=== PATIENT | male | born 1990 | race Caucasian/White ===

== ENCOUNTER → 2016-03-16 | Outpatient (CLI) | payer BC ==
[~2016-03-16] MED LIST: IBUP1CAP9 PO; ONDA4TAB46 PO; OXYC-57 PO; TAMS0.4C38 PO
[2016-03-16 17:34] LABS: BASO % 0.4 %; BASO ABS # 0.02 K/uL (0-0.2); COMPLETE YES; EOS % 1.6 %; HEMATOCRIT 41.8 % (42-52); IG% 0.2 %; LYMPH % 36.5 %; LYMPH ABS # 2.08 K/uL (1.2-3.4); MEAN CELL VOLUME 86.5 fL (80-100); MEAN CORPUSCULAR HEMOGLOBIN 31.3 pg (25-34); MEAN CORPUSCULAR HGB CONC 36.1 g/dl (32-36); MEAN PLATELET VOLUME 9.7 fL (7.4-10.4); MONO % 9.3 %; PLATELET COUNT 192 K/uL (130-400); RED BLOOD COUNT 4.83 M/uL (4.7-6.1)
[2016-03-16 17:49] LABS: BLOOD UREA NITROGEN 12 mg/dl (7-18); BUN/CREATININE RATIO 12.4 (10-20); CARBON DIOXIDE 30 mmol/L (21-32); CHLORIDE 103 mmol/L (98-107); CREATININE 0.97 mg/dl (0.60-1.40); POTASSIUM 4.2 mmol/L (3.5-5.1); SODIUM 142 mmol/L (136-145)
== END | disposition home or self-care (01) ==
LOC: C.LAB 17:00
PROVIDERS: ATTEND Urology
DX: N20.0 Calculus of kidney (principal)

== ENCOUNTER → 2016-03-19 | Day surgery (SDC) | payer BC ==
[2016-03-17 08:55] VITALS: Ht 177.8 cm; Wt 72.7 kg
[~2016-03-19] VITALS: Ht 177.8 cm; Wt 72.7 kg
[~2016-03-19] MED LIST changes: +ATROPINE SULFATE 0.1 MG/ML 5ML SYR IV PRN; +CIPROFLOXACIN 400MG / D5W IV SCH; +DEXAMETHASONE SOD INJ 4 MG/ML VIAL ONE; +EpHEDrine SULFATE INJ 50 MG/ML AMP IV PRN; +FENTANYL CITRATE INJ 50 MCG/1 ML 2 ML VIAL IV PRN; +FENTANYL CITRATE INJ 50 MCG/1 ML 2 ML VIAL ONE; +LACTATED RINGER'S 1000ML 1,000 ML IV SCH; +LIDOCAINE HCL 2% 2 ML VIAL (20MG/ML) ONE; +MIDAZOLAM HCL 1 MG/ML 2ML VIAL ONE; +ONDANSETRON INJ 2 MG/ML 2 ML VIAL IV PRN; +ONDANSETRON INJ 2 MG/ML 2 ML VIAL ONE; +OXYCODONE/ACETAMINOPHEN 5-325 TAB PO PRN; +PATIENT'S ALLERGY INFO NEEDS ENTERED SCH; +PROPOFOL IV EMULSION 10 MG/ML 20 ML VIAL IV ONE
--- NOTE | 2016-03-19 09:01 | DIAGNOSTIC IMAGING REPORT ---
[facility] CLINICAL HISTORY: Left ureteral calculus COMPARISON STUDY: Outside CT scan dated 03/09/2016 FINDINGS: There is no pathologic bowel dilatation. There is a 4 mm left renal calculus at the level of the left L3 transverse process. IMPRESSION: 1. No evidence of pathologic bowel dilatation 2. 4 mm proximal left ureteral calculus at the L3 level Electronically signed by: Pepe Gaytan M.D. 03/19/2016 8:59 AM Dictated Date/Time: 03/19/2016 8:58 AM
--- NOTE | 2016-03-19 11:20 | History & Physical Bridge Note ---
H&P Re-Evaluation Bridge Note: I have examined the patient, reviewed the History & Physical and in the interval since the performance of the History & Physical I have noted the following changes of clinical significance: No changes noted
--- NOTE | 2016-03-19 12:08 | Discharge Instructions ---
Discharge Instructions Admission Reason for Admission: Stones Discharge Discharge Diagnosis / Problem: L ureteral stone Discharge Goals Goal(s): Decrease discomfort, Improve disease control, Therapeutic intervention Activity Recommendations Activity Limitations: as noted below Lifting Limitations: gradually increase as tolerated Exercise/Sports Limitations: rest today May Resume Sexual Activity: when tolerated Shower/Bathe: no limitations Driving or Machine Use: resume 1 day after discharge . Instructions / Follow-Up Instructions / Follow-Up Strain urine as instructed Follow-up as scheduled in office with [facility] prior Discharge Diet Recommended Diet: Regular Diet (good fluid intake) Pending Studies Studies pending at discharge: no Medical Emergencies . Who to Call and When: Medical Emergencies: If at any time you feel your situation is an emergency, please call 911 immediately. . Non-Emergent Contact Non-Emergency issues call your: Urologist Call Non-Emergent contact if: you have a fever, temperature is above 101, your pain is not controlled, your pain is worsening, your pain is unusual for you, your pain is concerning you, you have any medication questions . . "Provider Documentation" section prepared by Jasen Mckee. VTE Core Measure Inpt VTE Proph given/why not?: SCD's
--- NOTE | 2016-03-19 13:11 | [facility] Post Operative Brief Note ---
Immediate Operative Summary Operative Date Mar 19, 2016. Pre-Operative Diagnosis Left Ureteral Calculi Post-Operative Diagnosis Same Procedure(s) Performed Left Extracorporeal Shock Wave Lithotripsy Surgeon Dr. Jake Mckee Social Service Worker Surgeon(s) None Estimated Blood Loss 0 mL Findings Excellent stone fragmentation on fluoro Specimens None Drains NA Anesthesia GALMA Complication(s) None Disposition Recovery Room / PACU
--- NOTE | 2016-03-19 13:34 | OPERATIVE REPORT ---
DATE OF OPERATION: 03/19/2016 PREOPERATIVE DIAGNOSIS: Left mid ureteral stone. POSTOPERATIVE DIAGNOSIS: Same. PROCEDURE: Left-sided ureteral extracorporeal shockwave lithotripsy. SURGEON: Dr. Jasen Mckee. NEGATIVE CLEANER: None. ANESTHESIA: General anesthesia with laryngeal mask. COMPLICATIONS: None. FINDINGS: Excellent stone fragmentation on fluoroscopy. DETAILS OF PROCEDURE: The patient was brought to the litho suite. He was correctly identified and the stone was visualized on his most recent x-rays. After the correct time out was performed the patient was positioned over the therapy head. An adequate level of anesthesia was administered. The extracorporeal shockwave lithotripsy treatment was then commenced. Please see the [facility] sheet for complete treatment summary. After completion of the procedure the patient was taken to the recovery room in stable condition. I attest to the content of the Intraoperative Record and any orders documented therein. Any exceptio ns are noted below.
[2016-03-19 14:01] VITALS: TEMP 36.6
[2016-03-19 14:35] VITALS: BP 149/88; PULSE 71; O2SAT 99
--- NOTE | 2016-03-19 15:02 | Anesthesia Progress Nt - [facility] ---
Anesthesia Post Op Note Date & Time Mar 19, 2016 at 14:10 Vital Signs Pain Intensity: 4 Vital Signs Past 12 Hours Date Time Temp Pulse Resp B/P Pulse Ox O2 Delivery O2 Flow Rate FiO2 03/19/16 14:35 71 16 149/88 99 Room Air 03/19/16 14:01 36.6 77 16 149/104 99 Room Air 03/19/16 13:53 138/91 03/19/16 13:51 82 16 97 03/19/16 13:51 36.9 77 16 144/83 97 Room Air 03/19/16 13:51 85 16 03/19/16 13:48 142/97 03/19/16 13:46 85 19 03/19/16 13:46 83 19 98 03/19/16 13:43 144/83 03/19/16 13:41 85 13 99 03/19/16 13:41 82 13 03/19/16 13:40 93 16 03/19/16 13:40 92 16 100 03/19/16 13:38 138/95 03/19/16 13:35 77 12 100 03/19/16 13:35 77 12 03/19/16 13:33 146/96 03/19/16 13:30 77 20 100 03/19/16 13:30 79 20 03/19/16 13:28 145/94 03/19/16 13:25 80 19 03/19/16 13:25 79 19 100 03/19/16 13:23 149/101 03/19/16 13:20 36.5 100 20 146/102 98 Diffusion Mask 6 03/19/16 13:20 84 20 100 03/19/16 13:20 87 20 03/19/16 10:06 36.9 84 20 131/88 99 Room Air Notes Mental Status: alert / awake / arousable, participated in evaluation Pt Amnestic to Procedure: Yes Nausea / Vomiting: adequately controlled Pain: adequately controlled Airway Patency, RR, SpO2: stable & adequate BP & HR: stable & adequate Hydration State: stable & adequate Anesthetic Complications: no major complications apparent
== END | disposition home or self-care (01) ==
LOC: X.SURG 09:03
PROVIDERS: ATTEND Urology
DX: N20.1 Calculus of ureter (principal)

== ENCOUNTER → 2016-03-31 | Outpatient (CLI) | payer BC ==
[~2016-03-31] MED LIST changes: -ATROPINE SULFATE 0.1 MG/ML 5ML SYR IV PRN; -CIPROFLOXACIN 400MG / D5W IV SCH; -DEXAMETHASONE SOD INJ 4 MG/ML VIAL ONE; -EpHEDrine SULFATE INJ 50 MG/ML AMP IV PRN; -FENTANYL CITRATE INJ 50 MCG/1 ML 2 ML VIAL IV PRN; -FENTANYL CITRATE INJ 50 MCG/1 ML 2 ML VIAL ONE; -LACTATED RINGER'S 1000ML 1,000 ML IV SCH; -LIDOCAINE HCL 2% 2 ML VIAL (20MG/ML) ONE; -MIDAZOLAM HCL 1 MG/ML 2ML VIAL ONE; -ONDANSETRON INJ 2 MG/ML 2 ML VIAL IV PRN; -ONDANSETRON INJ 2 MG/ML 2 ML VIAL ONE; -OXYCODONE/ACETAMINOPHEN 5-325 TAB PO PRN; -PATIENT'S ALLERGY INFO NEEDS ENTERED SCH; -PROPOFOL IV EMULSION 10 MG/ML 20 ML VIAL IV ONE; -TAMS0.4C38 PO
--- NOTE | 2016-03-31 09:15 | DIAGNOSTIC IMAGING REPORT ---
[facility] HISTORY: Left-sided kidney stones. Postop. COMPARISON: None. FINDINGS: The bowel gas pattern is unremarkable. There are no dilated loops of small bowel to suggest an obstruction. No renal calculi. No ureteral calculi. No bladder calculi. No pneumoperitoneum or pneumatosis. IMPRESSION: No renal or ureteral stones. Electronically signed by: Harley Villalta M.D. 03/31/2016 9:13 AM Dictated Date/Time: 03/31/2016 9:12 AM
== END | disposition home or self-care (01) ==
LOC: C.RAD1850 09:02
PROVIDERS: ATTEND Urology
DX: N20.0 Calculus of kidney (principal)